=== PATIENT | female | born 1955 | race Two or more races ===

== ENCOUNTER 2020-03-02 16:38 | Inpatient (IN) | payer MEDICAID, OTHER, SELFPAY ==
[~2020-03-02] VITALS: Ht 154.9 cm; Wt 74.0 kg
[2020-03-02 18:51] LABS: Basophils # (auto) 0 10 ^3/uL (0-0.2); Basophils % (auto) 0.4 % (0.0-2.0); Eosinophils # (auto) 0 10 ^3/uL (0-0.8); Hematocrit 39.2 % (36.0-46.0); Lymphocytes # (auto) 0.5 10 ^3/uL (0.4-5.4); Lymphocytes % (auto) 17.6 % (10.0-50.0); Mean Corpuscular Hemoglobin 30.5 pg (28.0-32.0); Mean Corpuscular Hgb Conc. 35.6 g/dL (32.0-36.0); Mean Corpuscular Volume 85.7 fL (80.0-100.0); Monocytes # (auto) 0.4 10 ^3/uL (0-1.3); Monocytes % (auto) 12.5 % (0.0-12.0); Neutrophils % (auto) 69.5 % (37.0-80.0); Platelet Count (auto) 139 10^3/uL (140-450); Red Blood Cells 4.58 10^6/uL (4.0-5.20); Red Cell Distribution Width 13.2 % (11.8-14.3); White Blood Cell 2.9 10^3/uL (4.4-10.8)
[2020-03-02] MEDS ORDERED: ASCORBIC ACID 500 MG TAB PO ONE (19:00)
[2020-03-02] MEDS ORDERED: DexAMETHasone SOD PHOS 10MG/1ML VIAL INJ IV ONE (19:00)
[2020-03-02] MEDS ORDERED: ZINC SULFATE 220mg CAP or TAB PO ONE (19:00)
[2020-03-02] MEDS ORDERED: AZITHROMYCIN 500MG/ 250ML 250 ML IV ONE (19:00)
[2020-03-02] MEDS ORDERED: SODIUM CHLORIDE 0.9% 1,000 ML IVB ONE (19:00)
[2020-03-02 19:03] LABS: INR 1.02 (0.9-1.15); Partial Thromboplastin Time 33.3 sec (23.0-31.2)
[2020-03-02 19:13] LABS: Albumin 3.3 g/dL (3.4-5.0); Calcium 8.4 mg/dL (8.5-10.1); Potassium 3.9 mmol/L (3.5-5.1)
[2020-03-02 19:20] LABS: BUN/Creatinine Ratio 19.5; Bilirubin, Total 0.4 mg/dL (0.2-1.0); Total Protein 7.2 g/dL (6.4-8.2)
[2020-03-02] MEDS ORDERED: ONDANSETRON HCL 4 MG/2 ML VIAL IV PRN (22:00)
[2020-03-02] MEDS ORDERED: HYDROcodone-ACET 5/325MG TAB PO PRN (22:00)
[2020-03-02] MEDS: BUDESONIDE (INHALATION) 180 MCG IH IN SCH (22:00)
[2020-03-02] MEDS ORDERED: MORPHINE SULF INJ 2 MG/ML SYRINGE 1ML IV PRN (22:00)
[2020-03-02] MEDS ORDERED: NITROGLYCERIN 0.4 MG SL TAB SL PRN (22:00)
[2020-03-02] MEDS ORDERED: ACETAMINOPHEN 500 MG TAB PO PRN (22:00)
[2020-03-02] MEDS ORDERED: DOCUSATE SOD 100 MG CAP PO PRN (22:00)
[2020-03-02] MEDS: SODIUM CHLOR 0.9% PF (SALINE LOCK) 10ML VIAL/SYR IV SCH (22:44)
[2020-03-02] MEDS: DOXYCYCLINE 100MG/250ML 250 ML IV SCH (23:19)
[2020-03-03] MEDS: SODIUM CHLOR 0.9% PF (SALINE LOCK) 10ML VIAL/SYR IV SCH ×2 (03:57→13:55)
[2020-03-03 04:37] LABS: Basophils # (auto) 0 10 ^3/uL (0-0.2); Eosinophils # (auto) 0 10 ^3/uL (0-0.8); Hemoglobin 13.8 g/dL (12.2-16.2); Lymphocytes # (auto) 0.4 10 ^3/uL (0.4-5.4); Monocytes # (auto) 0.1 10 ^3/uL (0-1.3); Neutrophils # (auto) 1.4 10 ^3/uL (1.6-8.6)
[2020-03-03 04:42] LABS: Basophils % (auto) 0.3 % (0.0-2.0); Hematocrit 39.7 % (36.0-46.0); Lymphocytes % (auto) 20.4 % (10.0-50.0); Mean Corpuscular Hgb Conc. 34.6 g/dL (32.0-36.0); Mean Corpuscular Volume 86.6 fL (80.0-100.0); Neutrophils % (auto) 73.3 % (37.0-80.0); Nucleated Red Blood Cells % 0.2 %; Platelet Count (auto) 140 10^3/uL (140-450); Red Blood Cells 4.59 10^6/uL (4.0-5.20); Red Cell Distribution Width 13.4 % (11.8-14.3)
[2020-03-03 04:55] LABS: Potassium 4.3 mmol/L (3.5-5.1)
[2020-03-03 04:56] LABS: White Blood Cell 1.9 10^3/uL (4.4-10.8)
[2020-03-03 05:03] LABS: BUN/Creatinine Ratio 21.3; Bilirubin, Total 0.4 mg/dL (0.2-1.0); Calcium 8.1 mg/dL (8.5-10.1); Magnesium 2.4 mg/dL (1.6-2.6); Total Protein 6.8 g/dL (6.4-8.2)
[2020-03-03] MEDS: BUDESONIDE (INHALATION) 180 MCG IH IN SCH ×2 (10:00→22:00)
[2020-03-03] MEDS ORDERED: PANTOPRAZOLE 40 MG/10 ML VIAL INJ IV SCH (10:00)
[2020-03-03] MEDS ORDERED: ENOXAPARIN SOD 40 MG/0.4 ML SYRINGE SC SCH (10:00)
[2020-03-03] MEDS: ZINC SULFATE 220mg CAP or TAB PO SCH (11:29)
[2020-03-03] MEDS: ASCORBIC ACID 1,000 MG TAB PO SCH (11:29)
[2020-03-03] MEDS: DOXYCYCLINE 100MG/250ML 250 ML IV SCH (11:29)
[2020-03-03] MEDS: MULTIPLE VITAMIN TAB PO SCH (11:29)
[2020-03-03] MEDS: CHOLECALCIFEROL (VITD3) 2,000 UNIT CAP/TAB PO SCH (11:30)
[2020-03-03] MEDS: DexAMETHasone SOD PHOS 10MG/1ML VIAL INJ IV SCH (11:30)
[2020-03-03] MEDS ORDERED: REMDESIVIR PER PHARMACY 0 ML IV SCH (12:00)
[2020-03-03] MEDS: ENOXAPARIN SOD 80 MG/0.8ML SYRINGE SC SCH (13:27)
[2020-03-03] MEDS ORDERED: REMDESIVIR 200 MG in NS 210ml LOADING DOSE ADULT IV ONE ×2 (15:00→18:00)
[2020-03-04] MEDS: DOXYCYCLINE 100MG/250ML 250 ML IV SCH ×3 (00:29→23:26)
[2020-03-04] MEDS: FAMOTIDINE 20 MG TAB PO SCH ×3 (00:29→23:26)
[2020-03-04] MEDS: ENOXAPARIN SOD 80 MG/0.8ML SYRINGE SC SCH ×2 (00:30→10:00)
[2020-03-04] MEDS: SODIUM CHLOR 0.9% PF (SALINE LOCK) 10ML VIAL/SYR IV SCH ×4 (00:30→23:26)
[2020-03-04 01:50] VITALS: BP 119/39
[2020-03-04 07:21] LABS: Albumin 2.8 g/dL (3.4-5.0); Calcium 8.4 mg/dL (8.5-10.1); Potassium 4.3 mmol/L (3.5-5.1)
[2020-03-04] MEDS: BUDESONIDE (INHALATION) 180 MCG IH IN SCH ×2 (07:26→21:37)
[2020-03-04 07:27] LABS: BUN/Creatinine Ratio 31.3; Bilirubin, Total 0.3 mg/dL (0.2-1.0); Total Protein 6.7 g/dL (6.4-8.2)
[2020-03-04 08:00] VITALS: BP 132/66
[2020-03-04] MEDS ORDERED: PROMETHAZINE HCL 25 MG/ML 1ML IV ONE (09:15)
[2020-03-04] MEDS ORDERED: MIDAZOLAM HCL 1MG/1ML-2 ML VIAL ONE (09:26)
[2020-03-04] MEDS ORDERED: SODIUM CHL 0.9% 50 ML ONE (09:26)
[2020-03-04] MEDS ORDERED: fentaNYL CITRATE 100 MCG/2 ML VL ONE (09:26)
[2020-03-04] MEDS ORDERED: ANGIOMAX 250 MG VIAL IV ONE (09:26)
[2020-03-04] MEDS ORDERED: VERAPAMIL 2.5MG/ML INJ 2ML VIAL IV ONE (09:26)
[2020-03-04] MEDS ORDERED: HEPARIN SODIUM (PORCINE) 5000 UNITS/ML 1ML VIAL ONE ×2 (09:27→09:40)
[2020-03-04] MEDS ORDERED: LIDOCAINE 2%HCL (LOCAL ANESTH.) INJ 20ML MDV ONE (09:28)
[2020-03-04] MEDS ORDERED: IODIXANOL 320MG/ML 100ML BTL IV ONE (09:29)
[2020-03-04] MEDS ORDERED: HEPARIN 1,000 UNITS/ml 1ML VIAL IV ONE (09:30)
[2020-03-04] MEDS ORDERED: ASPirin 81 mg TAB PO ONE (09:30)
[2020-03-04 09:36] LABS: Cholesterol 184 mg/dL (< 200); Triglycerides 133 mg/dL (< 150)
[2020-03-04 09:38] LABS: HDL Cholesterol 53 mg/dL (40-59); LDL Cholesterol 106 mg/dL (< 100)
[2020-03-04] MEDS ORDERED: ASPirin 81 mg TAB ONE (09:40)
[2020-03-04] MEDS: NITROGLYCERIN 0.2MG/HR TOPICAL PATCH TD SCH (10:00)
[2020-03-04] MEDS: ZINC SULFATE 220mg CAP or TAB PO SCH (10:00)
[2020-03-04] MEDS: MULTIPLE VITAMIN TAB PO SCH (10:00)
[2020-03-04] MEDS: CHOLECALCIFEROL (VITD3) 2,000 UNIT CAP/TAB PO SCH (10:00)
[2020-03-04] MEDS: DexAMETHasone SOD PHOS 10MG/1ML VIAL INJ IV SCH (10:00)
[2020-03-04] MEDS: ASCORBIC ACID 1,000 MG TAB PO SCH (10:00)
[2020-03-04] MEDS: ASPirin 81 mg TAB PO SCH (10:00)
[2020-03-04] MEDS: REMDESIVIR 100 MG in SODIUM CHL 0.9% 250 ML IV SCH (15:00)
[2020-03-04 16:00] VITALS: BP 104/45
[2020-03-04] MEDS: ENOXAPARIN SOD 40 MG/0.4 ML SYRINGE SC SCH (23:27)
[2020-03-05] VITALS: BP 118/50
[2020-03-05] MEDS: SODIUM CHLOR 0.9% PF (SALINE LOCK) 10ML VIAL/SYR IV SCH ×3 (05:47→22:34)
[2020-03-05] MEDS: BUDESONIDE (INHALATION) 180 MCG IH IN SCH ×2 (07:30→19:56)
[2020-03-05 08:00] VITALS: BP 121/50
[2020-03-05] MEDS: ALBUTEROL SULF HFA 90MCG INH 200DOSE IN PRN ×2 (08:38→19:56)
[2020-03-05 08:59] LABS: Potassium 3.7 mmol/L (3.5-5.1)
[2020-03-05 10:10] LABS: Albumin 2.6 g/dL (3.4-5.0); BUN/Creatinine Ratio 26.8; Bilirubin, Total 0.4 mg/dL (0.2-1.0); CRP High Sensitivity 4.2 mg/dL (< 0.3); Calcium 7.8 mg/dL (8.5-10.1); Total Protein 6.4 g/dL (6.4-8.2)
[2020-03-05] MEDS: FUROSEMIDE 20 MG/2 ML VIAL IV SCH (11:19)
[2020-03-05] MEDS: DexAMETHasone SOD PHOS 10MG/1ML VIAL INJ IV SCH (11:19)
[2020-03-05] MEDS: DOXYCYCLINE 100MG/250ML 250 ML IV SCH ×2 (11:20→22:34)
[2020-03-05] MEDS: ASPirin 81 mg TAB PO SCH (11:22)
[2020-03-05] MEDS: ENOXAPARIN SOD 40 MG/0.4 ML SYRINGE SC SCH ×2 (11:23→22:33)
[2020-03-05] MEDS: ZINC SULFATE 220mg CAP or TAB PO SCH (11:23)
[2020-03-05] MEDS: CHOLECALCIFEROL (VITD3) 2,000 UNIT CAP/TAB PO SCH (11:24)
[2020-03-05] MEDS: NITROGLYCERIN 0.2MG/HR TOPICAL PATCH TD SCH (11:24)
[2020-03-05] MEDS: ASCORBIC ACID 1,000 MG TAB PO SCH (11:25)
[2020-03-05] MEDS: FAMOTIDINE 20 MG TAB PO SCH ×2 (11:25→22:33)
[2020-03-05] MEDS: MULTIPLE VITAMIN TAB PO SCH (11:25)
[2020-03-05] MEDS ORDERED: ERGOCALCIFEROL 50,000 UNIT(1.25MG) CAP PO SCH ×2 (14:00→15:15)
[2020-03-05 16:00] VITALS: BP 118/59
[2020-03-05] MEDS: REMDESIVIR 100 MG in SODIUM CHL 0.9% 250 ML IV SCH (16:00)
[2020-03-05] MEDS: CLOPIDOGREL BISULFATE 75 MG TAB PO SCH (16:25)
[2020-03-05] MEDS ORDERED: ERGOCALCIFEROL 50,000 UNIT(1.25MG) CAP PO ONE (20:15)
[2020-03-05] MEDS: ATORVASTATIN 20 MG TAB PO SCH (22:33)
[2020-03-06] VITALS: BP 106/45
[2020-03-06] MEDS: SODIUM CHLOR 0.9% PF (SALINE LOCK) 10ML VIAL/SYR IV SCH ×3 (04:57→21:36)
[2020-03-06] MEDS: ALBUTEROL SULF HFA 90MCG INH 200DOSE IN PRN ×2 (07:26→21:30)
[2020-03-06] MEDS: BUDESONIDE (INHALATION) 180 MCG IH IN SCH ×2 (07:26→21:30)
[2020-03-06 07:29] LABS: Basophils # (auto) 0 10 ^3/uL (0-0.2); Basophils % (auto) 0.1 % (0.0-2.0); Eosinophils # (auto) 0 10 ^3/uL (0-0.8); Hematocrit 39.8 % (36.0-46.0); Hemoglobin 13.1 g/dL (12.2-16.2); Lymphocytes # (auto) 0.6 10 ^3/uL (0.4-5.4); Lymphocytes % (auto) 13.1 % (10.0-50.0); Mean Corpuscular Hemoglobin 28.6 pg (28.0-32.0); Mean Corpuscular Hgb Conc. 33.1 g/dL (32.0-36.0); Mean Corpuscular Volume 86.4 fL (80.0-100.0); Monocytes # (auto) 0.5 10 ^3/uL (0-1.3); Monocytes % (auto) 10.9 % (0.0-12.0); Neutrophils # (auto) 3.4 10 ^3/uL (1.6-8.6); Neutrophils % (auto) 75.9 % (37.0-80.0); Nucleated Red Blood Cells % 0.1 %; Platelet Count (auto) 199 10^3/uL (140-450); Red Cell Distribution Width 13.3 % (11.8-14.3); White Blood Cell 4.4 10^3/uL (4.4-10.8)
[2020-03-06 08:00] VITALS: BP 124/43
[2020-03-06 08:07] LABS: Potassium 3.9 mmol/L (3.5-5.1)
[2020-03-06 08:19] LABS: Albumin 2.5 g/dL (3.4-5.0); BUN/Creatinine Ratio 37.7; Bilirubin, Total 0.4 mg/dL (0.2-1.0); Calcium 8.2 mg/dL (8.5-10.1); Total Protein 6.4 g/dL (6.4-8.2)
[2020-03-06] MEDS: MULTIPLE VITAMIN TAB PO SCH (09:43)
[2020-03-06] MEDS: ASCORBIC ACID 1,000 MG TAB PO SCH (09:43)
[2020-03-06] MEDS: ZINC SULFATE 220mg CAP or TAB PO SCH (09:43)
[2020-03-06] MEDS: CLOPIDOGREL BISULFATE 75 MG TAB PO SCH (09:44)
[2020-03-06] MEDS: FAMOTIDINE 20 MG TAB PO SCH ×2 (09:44→21:37)
[2020-03-06] MEDS: ASPirin 81 mg TAB PO SCH (09:45)
[2020-03-06] MEDS: DexAMETHasone SOD PHOS 10MG/1ML VIAL INJ IV SCH (09:45)
[2020-03-06] MEDS: DOXYCYCLINE 100MG/250ML 250 ML IV SCH ×2 (09:45→21:36)
[2020-03-06] MEDS: ENOXAPARIN SOD 40 MG/0.4 ML SYRINGE SC SCH ×2 (09:46→21:37)
[2020-03-06] MEDS: FUROSEMIDE 20 MG/2 ML VIAL IV SCH (09:46)
[2020-03-06] MEDS: NITROGLYCERIN 0.2MG/HR TOPICAL PATCH TD SCH (10:00)
[2020-03-06] MEDS: CHOLECALCIFEROL (VITD3) 2,000 UNIT CAP/TAB PO SCH (10:11)
[2020-03-06 16:00] VITALS: BP 115/43
[2020-03-06] MEDS: REMDESIVIR 100 MG in SODIUM CHL 0.9% 250 ML IV SCH (16:15)
[2020-03-06] MEDS: ATORVASTATIN 20 MG TAB PO SCH (21:36)
[2020-03-07] VITALS: BP 118/55
[2020-03-07] MEDS: SODIUM CHLOR 0.9% PF (SALINE LOCK) 10ML VIAL/SYR IV SCH ×3 (06:34→21:55)
[2020-03-07 08:00] VITALS: BP 111/46
[2020-03-07 08:43] LABS: Albumin 2.7 g/dL (3.4-5.0); Potassium 3.5 mmol/L (3.5-5.1)
[2020-03-07 08:47] LABS: BUN/Creatinine Ratio 33.3; Bilirubin, Total 0.4 mg/dL (0.2-1.0); Total Protein 6.5 g/dL (6.4-8.2)
[2020-03-07] MEDS: NITROGLYCERIN 0.2MG/HR TOPICAL PATCH TD SCH (10:00)
[2020-03-07] MEDS: BUDESONIDE (INHALATION) 180 MCG IH IN SCH ×2 (10:39→19:13)
[2020-03-07] MEDS: FUROSEMIDE 20 MG/2 ML VIAL IV SCH (10:39)
[2020-03-07] MEDS: DexAMETHasone SOD PHOS 10MG/1ML VIAL INJ IV SCH (10:39)
[2020-03-07] MEDS: MULTIPLE VITAMIN TAB PO SCH (10:40)
[2020-03-07] MEDS: FAMOTIDINE 20 MG TAB PO SCH ×2 (10:40→21:55)
[2020-03-07] MEDS: ZINC SULFATE 220mg CAP or TAB PO SCH (10:40)
[2020-03-07] MEDS: ASPirin 81 mg TAB PO SCH (10:40)
[2020-03-07] MEDS: CLOPIDOGREL BISULFATE 75 MG TAB PO SCH (10:40)
[2020-03-07] MEDS: ASCORBIC ACID 1,000 MG TAB PO SCH (10:40)
[2020-03-07] MEDS: ENOXAPARIN SOD 40 MG/0.4 ML SYRINGE SC SCH ×2 (10:41→21:55)
[2020-03-07] MEDS: CHOLECALCIFEROL (VITD3) 2,000 UNIT CAP/TAB PO SCH (10:41)
[2020-03-07] MEDS: DOXYCYCLINE 100MG/250ML 250 ML IV SCH (10:43)
[2020-03-07 16:00] VITALS: BP 121/60
[2020-03-07] MEDS: REMDESIVIR 100 MG in SODIUM CHL 0.9% 250 ML IV SCH (16:52)
[2020-03-07] MEDS: ALBUTEROL SULF HFA 90MCG INH 200DOSE IN PRN (19:13)
[2020-03-07] MEDS: ATORVASTATIN 20 MG TAB PO SCH (21:55)
[2020-03-08] VITALS: BP 95/56
[2020-03-08 06:40] LABS: Albumin 2.7 g/dL (3.4-5.0); Calcium 8.2 mg/dL (8.5-10.1); Potassium 3.8 mmol/L (3.5-5.1)
[2020-03-08 06:44] LABS: BUN/Creatinine Ratio 36.2; Bilirubin, Total 0.5 mg/dL (0.2-1.0); Total Protein 6.6 g/dL (6.4-8.2)
[2020-03-08 08:00] VITALS: BP 132/52
[2020-03-08] MEDS: ENOXAPARIN SOD 40 MG/0.4 ML SYRINGE SC SCH (10:00)
[2020-03-08] MEDS: ASPirin 81 mg TAB PO SCH (10:00)
[2020-03-08] MEDS: ZINC SULFATE 220mg CAP or TAB PO SCH (10:00)
[2020-03-08] MEDS: CHOLECALCIFEROL (VITD3) 2,000 UNIT CAP/TAB PO SCH (10:00)
[2020-03-08] MEDS: BUDESONIDE (INHALATION) 180 MCG IH IN SCH ×2 (10:00→15:50)
[2020-03-08] MEDS: MULTIPLE VITAMIN TAB PO SCH (10:00)
[2020-03-08] MEDS: DexAMETHasone SOD PHOS 10MG/1ML VIAL INJ IV SCH (10:00)
[2020-03-08] MEDS: CLOPIDOGREL BISULFATE 75 MG TAB PO SCH (10:00)
[2020-03-08] MEDS: ASCORBIC ACID 1,000 MG TAB PO SCH (10:00)
[2020-03-08] MEDS: FAMOTIDINE 20 MG TAB PO SCH (10:00)
[2020-03-08] MEDS: NITROGLYCERIN 0.2MG/HR TOPICAL PATCH TD SCH (10:00)
[2020-03-08] MEDS: SODIUM CHLOR 0.9% PF (SALINE LOCK) 10ML VIAL/SYR IV SCH ×2 (11:07→14:00)
[2020-03-08] MEDS: FUROSEMIDE 20 MG/2 ML VIAL IV SCH (11:12)
[2020-03-08] MEDS: REMDESIVIR 100 MG in SODIUM CHL 0.9% 250 ML IV SCH (14:07)
[2020-03-08] MEDS: ALBUTEROL SULF HFA 90MCG INH 200DOSE IN PRN ×2 (15:49→15:50)
[2020-03-08 16:00] VITALS: BP 114/52
[2020-03-08 17:14] VITALS: BP 114/52
== END 2020-03-08 17:40 | disposition home or self-care (01) | DRG 192 ==
LOC: ER 16:41 → TELE 22:03 → TELE-WESTW 03-03 23:50
PROVIDERS: ADMIT Nurse Practitioner Family; ATTEND Internal Medicine
PROC: XW033E5 Introduction of Remdesivir Anti-infective into Peripheral Vein, Percutaneous Approach, New Technology Group 5 (ICD-10-PCS; 2020-03-03)
PROC: B2111ZZ Fluoroscopy of Multiple Coronary Arteries using Low Osmolar Contrast (ICD-10-PCS; principal; 2020-03-04)
DX: I11.0 Hypertensive heart disease with heart failure (principal); U07.1 COVID-19; I21.3 ST elevation (STEMI) myocardial infarction of unspecified site; I50.23 Acute on chronic systolic (congestive) heart failure; J96.01 Acute respiratory failure with hypoxia; J12.82 Pneumonia due to coronavirus disease 2019; D72.819 Decreased white blood cell count, unspecified; E11.9 Type 2 diabetes mellitus without complications; E66.9 Obesity, unspecified; I25.10 Atherosclerotic heart disease of native coronary artery without angina pectoris; E78.5 Hyperlipidemia, unspecified; I05.0 Rheumatic mitral stenosis; Z68.30 Body mass index [BMI] 30.0-30.9, adult; Z82.49 Family history of ischemic heart disease and other diseases of the circulatory system; Z88.0 Allergy status to penicillin
CPT/HCPCS: 36415; 71045; 80053; 80061; 82306; 82550; 82728; 83036; 83605; 83615; 83735; 83880; 84443; 84484; 85025; 85379; 85610; 85730; 86141; 87040; 87426; 93005; 93306; 93458; 94640; 99152; 99153; C9113; G0378; J1100; J2250; J3490; Q9967

== ENCOUNTER 2024-05-09 19:46 | Inpatient (IN) | payer MEDICAID ==
[~2024-05-09] VITALS: Ht 165.1 cm; Wt 82.5 kg
--- NOTE | 2024-05-09 20:01 | ED.PDOC ---
HPI Comments 69 year old female brought in by EMS presents to the ED with a chief complaint of chest pain onset today (05/09/24) around 17:00. Per EMS, patient began experiencing LT sided chest pain about 2 hours ago, described as a sharp/ tightness sensation. Upon their arrival patient was a-fib, RVR, self converted once she was in the rney. Patient states upon ED arrival, she is currently not experiencing chest pain. Upon ED arrival, EKG was done and sent to Dr. Nogueira for evaluation, states it is not a stemi at this time, give patient Nitro, repeat EKG in 15 minutes. PMHx HTN, HLD. Denies shortness of breath, blurry vision, headache, dizziness, nausea, vomiting, diarrhea. No other symptoms or modifying factors present at this time. Chief Complaint: Chest Pain Time Seen by MD: 19:54 Primary Care Provider: none Reviewed Notes: Medications, Allergies Allergies: Coded Allergies: Penicillins (Verified Allergy, Unknown, 03/02/20) Home Meds No Active Prescriptions or Reported Meds Information Source: Patient, Emergency Med Personnel Mode of Arrival: EMS Severity: Moderate Timing: Hours Duration: Since onset Prehospital treatment: 12 Lead EKG Location: Chest (L) Radiation: No Radiation Quality: Sharp, Tightness Onset: At Rest Cardiac Risk Factors: Hyperlipidemia, HTN PE Risk Factors: None History of: None Modifying Factors: Nothing Past Medical History PAST MEDICAL HISTORY: High Lipids, HTN Surgical History: Pacemaker LIFE SCIENCES MANAGER History: No Pertinent LIFE SCIENCES MANAGER History Family History Family History: Family hx of HTN Social History Smoker: Non-Smoker Alcohol: Rarely Lives In: Home Constitutional: denies: chills, diaphoresis, fatigue, fever, malaise, sweats, weakness, others EENTM: denies: blurred vision, double vision, ear bleeding, ear discharge, ear drainage, ear pain, ear ringing, eye pain, eye redness, hearing loss, mouth pain, mouth swelling, nasal discharge, nose bleeding, nose congestion, nose pain, photophobia, tearing, throat pain, throat swelling, voice changes, others Respiratory: denies: cough, hemoptysis, orthopnea, SOB at rest, shortness of breath, SOB with excertion, stridor, wheezing, others Cardiovascular: reports: chest pain; denies: dizzy spells, diaphoresis, Dyspnea on exertion, edema, irregular heart beat, left arm pain, lightheadedness, palpitations, PND, syncope, others Gastrointestinal: denies: abdomen distended, abdominal pain, blood streaked bowels, constipated, diarrhea, dysphagia, difficulty swallowing, hematemesis, melena, nausea, poor appetite, poor fluid intake, rectal bleeding, rectal pain, vomiting, others Genitourinary: denies: abnormal vagina bleeding, burning, dyspareunia, dysuria, flank pain, frequency, hematuria, incontinence, pain, , vagina discharge, urgency, others Neurological: denies: dizziness, fainting, headache, left sided numbness, left sided weakness, numbness, paresthesia, pre-existing deficit, right sided numbness, right sided weakness, seizure, speech problems, tingling, tremors, weakness, others Musculoskeletal: denies: back pain, gout, joint pain, joint swelling, muscle pain, muscle stiffness, neck pain, others Integumetry: denies: bruises, change in color, change in hair/nails, dryness, laceration, lesions, lumps, rash, wounds, others Allergic/Immunocompromised: denies: Difficulty Healing, Frequent Infections, Hives, Itching, others Hematologic/Lymphatic: denies: anemia, blood clots, easy bleeding, easy bruising, swollen glands, others Endocrine: denies: excessive hunger, excessive sweating, excessive thirst, excessive urination, flushing, intolerance to cold, intolerance to heat, unexplained weight gain, unexplained weight loss, others Psychiatric: denies: anxiety, bipolar disorder, depression, hopeless, panic disorder, schizophrenia, sleepless, suicidal, others All Other Systems: Reviewed and Negative Physical Exam General Appearance: No Apparent Distress, Normal HEENT: Normal ENT Inspection, Pharynx Normal, TMs Normal Neck: Full Range of Motion, Non-Tender, Normal, Normal Inspection Respiratory: Chest Non-Tender, Lungs Clear, No Accessory Muscle Use, No Respiratory Distress, Normal Breath Sounds Cardiovascular: No Edema, No JVD, No Murmur, No Gallop, Normal Peripheral Pulses, Regular Rate/Rhythm Breast Exam: Deferred Gastrointestinal: No Organomegaly, Non Tender, No Pulsatile Mass, Normal Bowel Sounds, Soft Genitalia: Deferred Pelvic: Deferred Rectal: Deferred Extremities: No calf tenderness, Normal capillary refill, Normal inspection, Normal range of motion, Non-tender, No pedal edema Musculoskeletal : Apperance: Normal Neurologic: Alert, 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 Was a procedure done?: No CP Differential Dx Differential Diagnosis: A-fib, RI, PAC's, PVC's, WPW Differential Diagnosis: HTN Essential, HTN Accelerated Differential Diagnosis: Cholelithiasis, Gastritis, Myocardial Infarction, Pericarditis X-Ray, Labs, Meds, VS Vital Signs Date Time Temp Pulse Resp B/P (MAP) Pulse Ox O2 Delivery O2 Flow Rate FiO2 05/09/24 20:15 83 05/09/24 20:09 137/66 05/09/24 20:02 79 05/09/24 19:51 98.2 92 18 137/66 (89) 95 05/09/24 19:47 82 Lab Test 05/09/24 20:49 05/09/24 20:08 Range/Units Troponin I High Sensitivity Pending 1105 *H </=34 ng/L White Blood Count 7.3 4.4-10.8 10^3/uL Red Blood Count 5.37 H 4.0-5.20 10^6/uL Hemoglobin 15.5 12.2-16.2 g/dL Hematocrit 47.4 H 36.0-46.0 % Mean Corpuscular Volume 88.2 80.0-100.0 fL Mean Corpuscular Hemoglobin 28.8 28.0-32.0 pg Mean Corpuscular Hemoglobin Concent 32.7 32.0-36.0 g/dL Red Cell Distribution Width 13.5 11.8-14.3 % Platelet Count 166 140-450 10^3/uL Mean Platelet Volume 10.3 6.9-10.8 fL Neutrophils (%) (Auto) 70.2 37.0-80.0 % Lymphocytes (%) (Auto) 22.3 10.0-50.0 % Monocytes (%) (Auto) 5.6 0.0-12.0 % Eosinophils (%) (Auto) 1.3 0.0-7.0 % Basophils (%) (Auto) 0.6 0.0-2.0 % Neutrophils # (Auto) 5.1 1.6-8.6 10 ^3/uL Lymphocytes # (Auto) 1.6 0.4-5.4 10 ^3/uL Monocytes # (Auto) 0.4 0-1.3 10 ^3/uL Eosinophils # (Auto) 0.1 0-0.8 10 ^3/uL Basophils # (Auto) 0 0-0.2 10 ^3/uL Nucleated Red Blood Cells 0.1 % Prothrombin Time 11.0 9.3-11.8 sec Prothrombin Time INR 1.04 0.9-1.15 Activated Partial Thromboplast Time 29.4 24.5-34.5 SEC Sodium Level 141 136-145 mmol/L Potassium Level 4.1 3.5-5.1 mmol/L Chloride Level 106 98-107 mmol/L Carbon Dioxide Level 22 20-31 mmol/L Anion Gap 13 5-15 Blood Urea Nitrogen 17 9-23 mg/dL Creatinine 0.91 0.550-1.02 mg/dL Glomerular Filtration Rate Calc 69 >90 mL/min BUN/Creatinine Ratio 18.7 10.0-20.0 Serum Glucose 127 H 74-106 mg/dL Lactic Acid Level 1.6 0.4-2.0 mmol/L Calcium Level 9.6 8.7-10.4 mg/dL Current Medications Medications (Trade) Dose Ordered Sig/Yesica Route Start Time Stop Time Status Last Admin Nitroglycerin (Ntrostat Sublingual) 0.4 mg ONCE ONCE SL 05/09/24 20:00 05/09/24 20:01 DC 05/09/24 20:09 . [place] [id number] Ph: [phone] DIAGNOSTIC IMAGING Diagnostic Imaging Report : [id number] Signed PATIENT: ROEL CRAMER ACCT: [id number] UNIT: [id number] : 1955 LOC: ER ROOM / BED: / AGE / SEX: 69 / F ADM STATUS: REG ER SERVICE 54 ORDERING PHYSICIAN: ODELL ZHU MD PROCEDURE(s): CXRP - CHEST PORTABLE REASON: chest pain ORDER NUMBER(s): [id number], ACCESSION NUMBER(s): [id number] CHEST RADIOGRAPH Indication: chest pain Technique: Single frontal view of the chest was obtained COMPARISON: CHEST PORTABLE on DOS: 03/06/20, CHEST PORTABLE on DOS: 03/02/20 FINDINGS: Lines and Tubes: Pacemaker/ AICD in the left upper chest with 2 cardiac leads. Lungs: Moderate interstitial pulmonary edema. Pleura: No effusion. No pneumothorax. Cardiomediastinal contours: Cardiomegaly Bones: Unremarkable IMPRESSION: 1. Moderate interstitial pulmonary edema in the setting of cardiomegaly ATED BY: AMANDA MURO MD DICTATED DATE/TIME: 05/09/242027 SIGNED BY: AMANDA MURO MD SIGNED DATE/TIME: 05/09/242027 CC: Time of 1ST Reevaluation: 20:24 Reevaluation 1ST: Unchanged Patient Education/Counseling: Diagnosis, Treatment, Prognosis Family Education/Counseling: No Family Present Departure 1 Departure Time of Disposition: 21:18 (Patient presented with chest pain that was concerning for possible STEMI, ACS, PE, Pneumonia, Muscle Strain, COPD, Dissection. Data: 1. I ordered and reviewed the result of at least 3 labs including a CBC, BMP, and Troponin. 2. I independently interpreted the following tests: EKG which shows elevations in the lateral leads and Chest X-ray which shows benign chest.Risk:This patient has a high risk of morbidity due to further diagnostic testing or treatment and may suffer from an acute cardiac or respiratory disorder. Workup reveals concern for an acute coronary syndrome and patient should be admitted for further workup and possible expert consultation. ) Impression: Primary Impression: Acute RI Qualified Codes: I21.3 - ST elevation (STEMI) myocardial infarction of unspecified site Additional Impression: Acute chest pain Disposition: 09 ADMITTED INPATIENT Admit to: medical laboratory assistant Condition: Critical e-Prescriptions No Active Prescriptions or Reported Meds Critical Care Note Critical Care Time?: Yes Critical care comment: Acute RI Authorized and Performed by: Odell Zhu MD Total critical care time: Approximately 47 minutes Due to a high probability of clinically significant, life threatening deterioration, the patient required my highest level of preparedness to intervene emergently and I personally spent this critical care time directly and personally managing the patient. This critical care time included obtaining a history; examining the patient; pulse oximetry; ordering and review of studies; arranging urgent treatment with development of a management plan; evaluation of patient's response to treatment; frequent reassessment; and, discussions with other providers. This critical care time was performed to assess and manage the high probability of imminent, life-threatening deterioration that could result in multi-organ failure. It was exclusive of separately billable procedures and treating other patients and teaching time. Please see my other sections and the rest of the note for further information on patient assessment and treatment. Stability Stability form required: No Heart Score Heart Score: Heart Score Response (Comments) Value History Moderate Suspicious [address]-Deviation 2 Age >65 2 Risk Factors >3 or Hx ASHD 2 Troponin >3 x's Normal limit 2 Total 9 I personally scribed for ODELL ZHU MD ([email or web address]) on 05/09/24 at 20:01. Electronically submitted by Radha Lancaster ([email or web address]). I personally scribed for ODELL ZHU MD ([email or web address]) on 05/09/24 at 20:04. Electronically submitted by Radha Lancaster ([email or web address]). I personally scribed for ODELL ZHU MD ([email or web address]) on 05/09/24 at 20:37. Electronically submitted by Radha Lancaster ([email or web address]). ODELL ZHU MD May 09, 2024 20:01
[2024-05-09] MEDS: NITROGLYCERIN 0.4 MG SL TAB SL ONE (20:09)
[2024-05-09 20:23] LABS: Basophils # (auto) 0 10 ^3/uL (0-0.2); Basophils % (auto) 0.6 % (0.0-2.0); Eosinophils # (auto) 0.1 10 ^3/uL (0-0.8); Eosinophils % (auto) 1.3 % (0.0-7.0); Hematocrit 47.4 % (36.0-46.0); Hemoglobin 15.5 g/dL (12.2-16.2); Lymphocytes # (auto) 1.6 10 ^3/uL (0.4-5.4); Lymphocytes % (auto) 22.3 % (10.0-50.0); Mean Corpuscular Hemoglobin 28.8 pg (28.0-32.0); Mean Corpuscular Hgb Conc. 32.7 g/dL (32.0-36.0); Mean Corpuscular Volume 88.2 fL (80.0-100.0); Monocytes # (auto) 0.4 10 ^3/uL (0-1.3); Monocytes % (auto) 5.6 % (0.0-12.0); Neutrophils # (auto) 5.1 10 ^3/uL (1.6-8.6); Neutrophils % (auto) 70.2 % (37.0-80.0); Nucleated Red Blood Cells % 0.1 %; Platelet Count (auto) 166 10^3/uL (140-450); Red Blood Cells 5.37 10^6/uL (4.0-5.20); Red Cell Distribution Width 13.5 % (11.8-14.3); White Blood Cell 7.3 10^3/uL (4.4-10.8)
--- NOTE | 2024-05-09 20:31 | DVH ---
CHEST RADIOGRAPH Indication: chest pain Technique: Single frontal view of the chest was obtained COMPARISON: CHEST PORTABLE on DOS: 03/06/20, CHEST PORTABLE on DOS: 03/02/20 FINDINGS: Lines and Tubes: Pacemaker/ AICD in the left upper chest with 2 cardiac leads. Lungs: Moderate interstitial pulmonary edema. Pleura: No effusion. No pneumothorax. Cardiomediastinal contours: Cardiomegaly Bones: Unremarkable IMPRESSION: 1. Moderate interstitial pulmonary edema in the setting of cardiomegaly
[2024-05-09 20:37] LABS: INR 1.04 (0.9-1.15); Partial Thromboplastin Time 29.4 SEC (24.5-34.5)
[2024-05-09 20:39] LABS: Chloride 106 mmol/L (98-107); Potassium 4.1 mmol/L (3.5-5.1); Sodium 141 mmol/L (136-145)
[2024-05-09 20:40] LABS: Anion Gap 13 (5-15); Calcium 9.6 mg/dL (8.7-10.4); Carbon Dioxide 22 mmol/L (20-31)
[2024-05-09 20:45] LABS: BUN/Creatinine Ratio 18.7 (10.0-20.0); Blood Urea Nitrogen 17 mg/dL (9-23)
[2024-05-09 20:46] LABS: Glucose 127 mg/dL (74-106)
--- NOTE | 2024-05-09 21:17 | DVHINCON2 ---
Date Seen: May 09, [address] Kingsley Reason for Consultation Chest pain History of Present Illness 69-year-old lady with a previous history of COVID and respiratory failure comes with a history of substernal chest pain. She was found to have an abnormal EKG for which cardiac evaluation was requested. She does have a previous history of coronary artery disease status post previous myocardial infarction. She states she was treated at [facility]. Most recently she developed substernal pressure however upon arrival to the emergency room and after several minutes her symptoms subsided. She felt a pressure type sensation. I was asked to evaluate patient with ST elevations and Q-waves in the anterior lateral leads. This EKG is similar to the one she had in 2019 and when she was here in the past. Past Medical History Her past medical history significant for coronary artery disease status post myocardial infarction treated at [facility] several years ago. History of hypertension hyperlipidemia. Increased body mass index. Past surgical history is significant for a pacemaker. Past Surgical History Status post pacemaker. Family History Noted history of coronary artery disease and hypertension Social History Nondrinker nonsmoker. Allergies: Coded Allergies: Penicillins (Verified Allergy, Unknown, 03/02/20) Home Meds No Active Prescriptions or Reported Meds Review of Systems Constitutional: denies: chills, diaphoresis, fatigue, fever, malaise, sweats, weakness, others EENTM: denies: blurred vision, double vision, ear bleeding, ear discharge, ear drainage, ear pain, ear ringing, eye pain, eye redness, hearing loss, mouth pain, mouth swelling, nasal discharge, nose bleeding, nose congestion, nose pain, photophobia, tearing, throat pain, throat swelling, voice changes, others Respiratory: denies: cough, hemoptysis, orthopnea, SOB at rest, shortness of breath, SOB with excertion, stridor, wheezing, others Cardiovascular: reports: chest pain; denies: dizzy spells, diaphoresis, Dyspnea on exertion, edema, irregular heart beat, left arm pain, lightheadedness, palpitations, PND, syncope, others Gastrointestinal: denies: abdomen distended, abdominal pain, blood streaked bowels, constipated, diarrhea, dysphagia, difficulty swallowing, hematemesis, melena, nausea, poor appetite, poor fluid intake, rectal bleeding, rectal pain, vomiting, others Genitourinary: denies: abnormal vagina bleeding, burning, dyspareunia, dysuria, flank pain, frequency, hematuria, incontinence, pain, , vagina discharge, urgency, others Neurological: denies: dizziness, fainting, headache, left sided numbness, left sided weakness, numbness, paresthesia, pre-existing deficit, right sided numbness, right sided weakness, seizure, speech problems, tingling, tremors, weakness, others Musculoskeletal: denies: back pain, gout, joint pain, joint swelling, muscle pain, muscle stiffness, neck pain, others Integumetry: denies: bruises, change in color, change in hair/nails, dryness, laceration, lesions, lumps, rash, wounds, others Allergic/Immunocompromised: denies: Difficulty Healing, Frequent Infections, Hives, Itching, others Hematologic/Lymphatic: denies: anemia, blood clots, easy bleeding, easy bruising, swollen glands, others Endocrine: denies: excessive hunger, excessive sweating, excessive thirst, excessive urination, flushing, intolerance to cold, intolerance to heat, unexplained weight gain, unexplained weight loss, others Psychiatric: denies: anxiety, bipolar disorder, depression, hopeless, panic disorder, schizophrenia, sleepless, suicidal, others All Other Systems: Reviewed and Negative Vital Signs Vital Signs Date Time Temp Pulse Resp B/P (MAP) Pulse Ox O2 Delivery O2 Flow Rate FiO2 05/09/24 20:15 83 05/09/24 20:09 137/66 05/09/24 19:51 98.2 18 95 Physical Exam General Appearance: No Apparent Distress, Increased BMI. HEENT: Normal ENT Inspection, Pharynx Normal, TMs Normal Neck: Full Range of Motion, Non-Tender, Normal, Normal Inspection Respiratory: Chest Non-Tender, Lungs Clear, No Accessory Muscle Use, No Respiratory Distress, Normal Breath Sounds Cardiovascular: No Edema, No JVD, No Murmur, Soft S4. 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 Tested, No Motor Deficits, Normal Affect, Normal Mood, No Sensory Deficits Cerebellar Function: Normal Reflexes: Normal Skin: Dry, Normal Color, Warm Lymphatic: No Adenopathy Labs/Diagnostic Data Labs Test 05/09/24 20:49 05/09/24 20:08 Range/Units White Blood Count 7.3 4.4-10.8 10^3/uL Red Blood Count 5.37 H 4.0-5.20 10^6/uL Hemoglobin 15.5 12.2-16.2 g/dL Hematocrit 47.4 H 36.0-46.0 % Mean Corpuscular Volume 88.2 80.0-100.0 fL Mean Corpuscular Hemoglobin 28.8 28.0-32.0 pg Mean Corpuscular Hemoglobin Concent 32.7 32.0-36.0 g/dL Red Cell Distribution Width 13.5 11.8-14.3 % Platelet Count 166 140-450 10^3/uL Mean Platelet Volume 10.3 6.9-10.8 fL Neutrophils (%) (Auto) 70.2 37.0-80.0 % Lymphocytes (%) (Auto) 22.3 10.0-50.0 % Monocytes (%) (Auto) 5.6 0.0-12.0 % Eosinophils (%) (Auto) 1.3 0.0-7.0 % Basophils (%) (Auto) 0.6 0.0-2.0 % Neutrophils # (Auto) 5.1 1.6-8.6 10 ^3/uL Lymphocytes # (Auto) 1.6 0.4-5.4 10 ^3/uL Monocytes # (Auto) 0.4 0-1.3 10 ^3/uL Eosinophils # (Auto) 0.1 0-0.8 10 ^3/uL Basophils # (Auto) 0 0-0.2 10 ^3/uL Nucleated Red Blood Cells 0.1 % Prothrombin Time 11.0 9.3-11.8 sec Prothrombin Time INR 1.04 0.9-1.15 Activated Partial Thromboplast Time 29.4 24.5-34.5 SEC Sodium Level 141 136-145 mmol/L Potassium Level 4.1 3.5-5.1 mmol/L Chloride Level 106 98-107 mmol/L Carbon Dioxide Level 22 20-31 mmol/L Anion Gap 13 5-15 Blood Urea Nitrogen 17 9-23 mg/dL Creatinine 0.91 0.550-1.02 mg/dL Glomerular Filtration Rate Calc 69 >90 mL/min BUN/Creatinine Ratio 18.7 10.0-20.0 Serum Glucose 127 H 74-106 mg/dL Lactic Acid Level 1.6 0.4-2.0 mmol/L Calcium Level 9.6 8.7-10.4 mg/dL EKG shows anteroseptal Q-waves with lateral ST segment changes. Similar to an EKG she had in [address] elevations and Q-waves noted then Assessment Acute coronary syndrome with positive troponins. Old anterior septal wall myocardial infarction. Increased BMI. Recurrent chest pain. Hypertension. Hyperlipidemia. Plan/Recommendation Given her symptoms of chest pain and positive troponins with a previous history of CAD this patient will undergo cardiac catheterization therapeutic intervention. Risks and benefits explained. Patient agrees. Plan discussed with: Patient NYHA Physical activity limitations: Class2(Slight)fatigue,sob Date of Service: May 09, 2024 Billing Provider: YESSICA SANDERS Sr., MD Cardiology Common Codes: 22703-NAXGFKC INP/OBS CARE (High) YESSICA SANDERS Sr., MD May 09, 2024 21:17
[2024-05-09 21:20] VITALS: PULSE 85; RESP 26; O2SAT 92
[2024-05-09] MEDS: IODIXANOL 320MG/ML 100ML BTL IV ONE (21:25)
[2024-05-09] MEDS: ANGIOMAX 250 MG VIAL IV ONE (21:26)
[2024-05-09] MEDS: fentaNYL CITRATE 100 MCG/2 ML VL ONE (21:26)
[2024-05-09] MEDS: LIDOCAINE 2%HCL (LOCAL ANESTH.) INJ 20ML MDV ONE (21:27)
[2024-05-09] MEDS: SODIUM CHL 0.9% 50 ML ONE (21:27)
[2024-05-09] MEDS: MIDAZOLAM HCL 2MG/2ML 2ml VIAL (1mg/ml) ONE (21:27)
[2024-05-09 22:10] VITALS: BP 133/62; PULSE 68; RESP 20; TEMP 97.1; O2SAT 92
--- NOTE | 2024-05-09 22:22 | DVHOP2 ---
Operative Report - 2 Report Details Date: 05/09/24 Preop Diagnosis: Chest pain Postop Diagnosis: Normal coronary arteries. Hypertensive cardiomyopathy Surgeon: Yessica Nogueira MD Anesthesiologist: Conscious sedation Anesthesia: Mac, Local (Fentanyl and Versed were ordered by me. Personally oversaw the administration of medications and monitored the patient throughout the entirety of the procedure.) Consent: The patient was informed of the risks and benefits of the procedure. These include but are not limited to complications of anesthesia, postoperative infection, incomplete relief of symptoms, recurrence of symptoms, damage to blood vessels, nerves and tendons, deep venous thrombosis, pulmonary embolism and possible need for repeat surgery in the future. Complications: No complications Estimated Blood Loss: 5 cc Findings: Normal coronary arteries. Hypertensive cardiomyopathy Indications for Surgery: Abnormal EKG. Elevated troponins. Name of Procedure Performed Left heart catheterization bilateral cine coronary angiography. Left ventriculography. Procedure Details Procedure Details: Prior local anesthesia with 2% lidocaine to the right groin and full informed consent obtained under fluoroscopic and ultrasound guidance we placed a catheter into the femoral artery and with Val catheters performed ventriculography and cannulation of both right and left coronary ostia without complications. Hemodynamics aortic blood pressure was 140/90 end-diastolic pressure was 22. There was no gradient across the aortic valve on pullback. Coronary anatomy: RCA is a large dominant vessel. It is normal in its proximal mid and distal segments. The PDA and posterolateral devries are normal Left main is large and normal Left anterior descending is large and normal with two diagonals free of significant disease Circumflex is large with two marginals free of significant disease Ventriculography in the SEE projection shows an EF of 50-55%. Hypertensive heart is noted. LVH of significant degree. Impression elevated left ventricular end-diastolic pressure at rest. Normal e jection fraction. No significant CAD. Recommendations: Medical therapy is warranted continue with risk factor modification. Condition Good Disposition Still a Patient Date of Service: May 09, 2024 Billing Provider: YESSICA NOGUEIRA Sr., MD Cardiology Common Codes: 35544-XYTUWFR INP/OBS CARE (High) Cardiology Procedure Codes: 50736-LOHFLQ VESSEL W/I VASC FAM, 71549-JTOS ADD CORONARY BRANCH, 43692-BKCY HEART CATH W/INTRA INJ YESSICA NOGUEIRA Sr., MD May 09, 2024 22:22
[2024-05-09 22:25] VITALS: BP 118/54; PULSE 70; RESP 20; O2SAT 92
[2024-05-09 22:40] VITALS: BP 115/49; PULSE 70; RESP 20; O2SAT 92
[2024-05-09 22:55] VITALS: BP 133/65; PULSE 68; RESP 18; TEMP 98.1; O2SAT 97
[2024-05-09 23:16] VITALS: PULSE 68; RESP 18; O2SAT 97
[2024-05-10] MEDS ORDERED: NITROGLYCERIN 0.4 MG SL TAB SL PRN (00:45)
[2024-05-10] MEDS ORDERED: MORPHINE SULFATE INJ 2 MG/ml SYRG IV PRN (00:45)
[2024-05-10] MEDS ORDERED: DEXTROSE (50%) 50ML SYRG IV PRN (00:45)
[2024-05-10] MEDS: ASPirin 81 mg TAB PO SCH (01:05)
[2024-05-10] MEDS: LOSARTAN POTASSIUM 50 MG TAB PO SCH (01:05)
[2024-05-10 02:19] LABS: Basophils # (auto) 0.1 10 ^3/uL (0-0.2); Basophils % (auto) 0.8 % (0.0-2.0); Eosinophils # (auto) 0.1 10 ^3/uL (0-0.8); Eosinophils % (auto) 1.7 % (0.0-7.0); Hematocrit 41.5 % (36.0-46.0); Lymphocytes # (auto) 2.3 10 ^3/uL (0.4-5.4); Lymphocytes % (auto) 35.1 % (10.0-50.0); Mean Corpuscular Hemoglobin 29.3 pg (28.0-32.0); Mean Corpuscular Hgb Conc. 33.8 g/dL (32.0-36.0); Mean Corpuscular Volume 86.8 fL (80.0-100.0); Monocytes # (auto) 0.5 10 ^3/uL (0-1.3); Monocytes % (auto) 7.7 % (0.0-12.0); Neutrophils # (auto) 3.5 10 ^3/uL (1.6-8.6); Neutrophils % (auto) 54.7 % (37.0-80.0); Nucleated Red Blood Cells % 0.1 %; Platelet Count (auto) 167 10^3/uL (140-450); Red Blood Cells 4.78 10^6/uL (4.0-5.20); Red Cell Distribution Width 13.4 % (11.8-14.3); White Blood Cell 6.4 10^3/uL (4.4-10.8)
[2024-05-10 02:41] LABS: Alanine Aminotransferase 22 U/L (7-40); Anion Gap 9 (5-15); Aspartate Aminotransferase 20 U/L (13-40); BUN/Creatinine Ratio 20.5 (10.0-20.0); Blood Urea Nitrogen 17 mg/dL (9-23); Calcium 9.3 mg/dL (8.7-10.4); Carbon Dioxide 24 mmol/L (20-31); LDL Cholesterol 93 mg/dL (< 100); Potassium 4.2 mmol/L (3.5-5.1); Sodium 142 mmol/L (136-145); Total Protein 6.2 g/dL (5.7-8.2); Triglycerides 145 mg/dL (< 150)
[2024-05-10 02:42] LABS: Bilirubin, Total 0.4 mg/dL (0.2-1.0); Cholesterol 167 mg/dL (< 200); HDL Cholesterol 57 mg/dL (40-59)
[2024-05-10 02:51] LABS: Alkaline Phosphatase 119 U/L (46-116); Chloride 109 mmol/L (98-107); Glucose 108 mg/dL (74-106)
--- NOTE | 2024-05-10 03:56 | ECG ---
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
--- NOTE | 2024-05-10 03:56 | ECG ---
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
--- NOTE | 2024-05-10 03:56 | ECG ---
[facility] Test Date: 2024-05-09 Test Time: 20:15:55 Pat Name: ROEL CRAMER Department: ED Room: 0273T Gender: F Auth Specialist: MARU : 1955 Requested By: ODELL ZHU Order Number: [id number] Reading MD: Measurements Intervals [place] Rate: 83 P: 62 [place]: 174 QRS: -10 QRSD: 115 T: 131 QT: 394 QTc: 463 Interpretive Statements Sinus rhythm Left atrial enlargement LVH with IVCD and secondary repol abnrm Extensive anterior infarct, acute (LAD) Please click the below link to view image of tracing.
--- NOTE | 2024-05-10 04:17 | DVHHPRES ---
History of Present Illness Resident Creating Document: MATTHEW BARBOZA RESIDENT Reason for Visit: chest pain History of Present Illness 69-year-old female with a history of hypertension, hyperlipidemia, and a pacemaker, brought to the ED by EMS for evaluation of chest pain. The pain began around 17:00 while she was at rest with her grandson. She describes it as a sharp, tight sensation on the left side of her chest, without associated shortness of breath, blurry vision, headache, dizziness, nausea, vomiting, or diarrhea. EMS reported that she was initially in atrial fibrillation (A-fib) with rapid ventricular response (RVR) but converted to sinus rhythm during transport. Upon arrival, an EKG was performed, and she was given nitroglycerin, with repeat EKG in 15 minutes. Initial troponin was 1,100, followed by 1,200, and later increased to 2,100. Due to abnormal EKG findings with ST changes, the patient underwent a left heart catheterization, which showed normal coronary arteries and hypertensive cardiomyopathy, with no significant coronary artery disease (CAD). Currently, the patient is pain-free on the floor. Past Medical History: Hypertension Hyperlipidemia Pacemaker (She doesnt remember why) History of COVID with prior respiratory failure Past Surgical History: Pacemaker placement Social History: Smoking: Nonsmoker Alcohol: Rare use Drugs: Denies Living situation: Lives at home Allergies: Penicillins Review of Systems Review of Systems Constitutional: Denies chills, diaphoresis, fever, malaise, sweats, weakness HEENT: Denies double vision, photophobia, hearing loss Cardiovascular: Reports chest pain, denies palpitations or syncope Pulmonary: Denies SOB, wheezing, stridor GI: Denies nausea, vomiting, diarrhea Neurologic: Denies dizziness, headache, speech problems Psychiatric: Denies depression, hallucinations Allergies: Coded Allergies: Penicillins (Verified Allergy, Unknown, 03/02/20) Medications Current Medications Medications Dose Ordered Sig/Yesica Route Start Time Stop Time Status Last Admin Dose Admin Nitroglycerin 0.4 mg Q5MINP PRN SL 05/10/24 00:45 Morphine Sulfate 2 mg Q30M PRN IV 05/10/24 00:45 Aspirin 81 mg DAILY PO 05/10/24 00:45 05/10/24 01:05 81 MG Losartan Potassium 50 mg DAILY PO 05/10/24 00:45 05/10/24 01:05 50 MG Diagnostic Test (Pha) 1 strip Q6HR 05/10/24 06:00 Insulin Human Regular Q6HR SC 05/10/24 06:00 Dextrose 50 ml UD PRN IV 05/10/24 00:45 Enoxaparin Sodium 40 mg DAILY SC 05/10/24 10:00 Furosemide 20 mg DAILY IV 05/10/24 04:00 Exam Vital Signs Vital Signs Date Time Temp Pulse Resp B/P (MAP) Pulse Ox O2 Delivery O2 Flow Rate FiO2 05/10/24 01:05 136/63 05/09/24 23:16 68 18 97 Room Air* 0 21 05/09/24 22:10 97.1 97.1 Exam General: No acute distress Cardiovascular: Regular rate and rhythm, no murmurs, rubs, or gallops Pulmonary: Clear to auscultation bilaterally, no rales, rhonchi, or wheezing Neurologic: Alert and oriented, no focal deficits Extremities: right groin puncture without hematoma or bleeding Labs/Xrays Labs Test 05/10/24 01:55 05/09/24 20:08 Range/Units White Blood Count 6.4 4.4-10.8 10^3/uL Red Blood Count 4.78 4.0-5.20 10^6/uL Hemoglobin 14.0 12.2-16.2 g/dL Hematocrit 41.5 # 36.0-46.0 % Mean Corpuscular Volume 86.8 80.0-100.0 fL Mean Corpuscular Hemoglobin 29.3 28.0-32.0 pg Mean Corpuscular Hemoglobin Concent 33.8 32.0-36.0 g/dL Red Cell Distribution Width 13.4 11.8-14.3 % Platelet Count 167 140-450 10^3/uL Mean Platelet Volume 10.6 6.9-10.8 fL Neutrophils (%) (Auto) 54.7 37.0-80.0 % Lymphocytes (%) (Auto) 35.1 10.0-50.0 % Monocytes (%) (Auto) 7.7 0.0-12.0 % Eosinophils (%) (Auto) 1.7 0.0-7.0 % Basophils (%) (Auto) 0.8 0.0-2.0 % Neutrophils # (Auto) 3.5 1.6-8.6 10 ^3/uL Lymphocytes # (Auto) 2.3 0.4-5.4 10 ^3/uL Monocytes # (Auto) 0.5 0-1.3 10 ^3/uL Eosinophils # (Auto) 0.1 0-0.8 10 ^3/uL Basophils # (Auto) 0.1 0-0.2 10 ^3/uL Nucleated Red Blood Cells 0.1 % Sodium Level 142 136-145 mmol/L Potassium Level 4.2 3.5-5.1 mmol/L Chloride Level 109 H 98-107 mmol/L Carbon Dioxide Level 24 20-31 mmol/L Anion Gap 9 5-15 Blood Urea Nitrogen 17 9-23 mg/dL Creatinine 0.83 0.550-1.02 mg/dL Glomerular Filtration Rate Calc 77 >90 mL/min BUN/Creatinine Ratio 20.5 H 10.0-20.0 Serum Glucose 108 H 74-106 mg/dL Hemoglobin A1c 6.3 H <5.7 % A1C Calcium Level 9.3 8.7-10.4 mg/dL Total Bilirubin 0.4 0.2-1.0 mg/dL Aspartate Amino Transferase (AST) 20 13-40 U/L Alanine Aminotransferase (ALT) 22 7-40 U/L Alkaline Phosphatase 119 H 46-116 U/L Troponin I High Sensitivity 2174 *H </=34 ng/L B-Type Natriuretic Peptide 550.74 0-100 pg/mL Total Protein 6.2 5.7-8.2 g/dL Albumin 4.0 3.2-4.8 g/dL Triglycerides Level 145 < 150 mg/dL Cholesterol Level 167 < 200 mg/dL LDL Cholesterol 93 < 100 mg/dL HDL Cholesterol 57 40-59 mg/dL Thyroid Stimulating Hormone (TSH) 1.92 0.55-4.78 uIU/mL Prothrombin Time 11.0 9.3-11.8 sec Prothrombin Time INR 1.04 0.9-1.15 Activated Partial Thromboplast Time 29.4 24.5-34.5 SEC Lactic Acid Level 1.6 0.4-2.0 mmol/L Assessment/Plan Assessment/Plan Imaging & Diagnostic Studies: 1. EKG: EKG shows anteroseptal Q-waves with lateral ST segment changes. Similar to an EKG she had in [address] elevations and Q- waves noted then 2. Troponins: Rising trend (1,100 - 1,200 - 2,100) 3. Cardiac catheterization: Normal coronary arteries Hypertensive cardiomyopathy Left ventricular ejection fraction 50-55%, significant LVH No significant CAD 4. Chest X-ray: Pacemaker present Moderate interstitial pulmonary edema in the setting of cardiomegaly 5. High levels of BNP Assessment & Plan: 69-year-old female with hypertension, hyperlipidemia, and pacemaker, presenting with chest pain, found to have abnormal EKG and rising troponins but normal coronary arteries on catheterization. #Chest pain #s/p left cath #ST elevation: present now, 2020? #Afib with RVR resolved #Hypertensive heart disease with diastolic dysfunction #Acute exacerbation of HFpEF #s/p pacemaker No obstructive CAD per cath Continue cardiac monitoring ECHO pending Start metoprolol 50 mg Start enoxaparin BID Start jardiance 10 mg Start losartan 50 mg Pacemaker interrogation Continue cardiology f/u Start furosemide 20 mg BID ASCVD score 11.9%: atorvastatin 80 mg Case discussed with Dr Jensen Plan discussed with: Patient, Other (rn) My Orders Orders - MATTHEW BARBOZA RESIDENT Procedure Category Date Status Time Admit ADMIT 05/10/24 Transmitted 00:33 Nitroglycerin PHA 05/10/24 In Process Sublingual (Ntrostat 00:45 Morphine Sulfate PHA 05/10/24 In Process Injection 00:45 Oxygen By Nasal RT 05/10/24 Transmitted Cannula 00:33 Stat Ekg For Chest CHAPIN 05/10/24 In Process Pain 00:33 Notify Md Of Changes CHAPIN 05/10/24 In Process From Base 00:33 Manufacturing Systems Engineer For CHAPIN 05/10/24 In Process 24 Hours 00:33 Emergency Dysrhythmia CHAPIN 05/10/24 In Process Protocol 00:33 Rhythm Strips Once CHAPIN 05/10/24 In Process Every Shift 00:33 Cardiac DIET 05/10/24 Transmitted Diet-2gna,Lofat,Lochol Breakfast Aspirin Tablet PHA 05/10/24 In Process 00:45 Losartan Tablet PHA 05/10/24 In Process (Cozaar Tablet) 00:45 Glucose Blood PHA 05/10/24 In Process (Accu-Chek Comfort 06:00 Insulin R (Human) PHA 05/10/24 In Process (Insulin R) 06:00 Dextrose 50% Syringe PHA 05/10/24 In Process 00:45 Echo 2d Mode Cardiac US 05/10/24 Logged DOP 01:23 Enoxaparin Sodium PHA 05/10/24 In Process (Lovenox) 10:00 Furosemide Injection PHA 05/10/24 In Process (Lasix Injection) 04:00 Date of Service: May 10, 2024 Billing Provider: AGAPITO JENSEN MD Common Visit Codes: 18742-XPSTFRP INP/OBS CARE (HIGH) Secondary Visit Codes: 56562-VENLKWXU CARE PLAN 30 MINUTES MATTHEW BARBOZA RESIDENT May 10, 2024 04:17 AGAPITO JENSEN MD May 10, 2024 18:36
[2024-05-10 05:00] VITALS: BP_SYST 102; BP_SYST 136; BP_DIAS 63; BP_DIAS 71; PULSE 62; PULSE 82; RESP 17; RESP 18; TEMP 97.7; TEMP 97.8; O2SAT 93; O2SAT 96
[2024-05-10] MEDS: FUROSEMIDE 20 MG/2 ML VIAL IV SCH (05:44)
[2024-05-10] MEDS ORDERED: InsuLIN REG 1unit/0.01ml Soln (100units/ml) SC SCH (06:00)
[2024-05-10] MEDS ORDERED: ACCU-CHEK COMFORT CURVE STRIP VI SCH (06:00)
[2024-05-10 08:00] VITALS: PULSE 63; PULSE 66; RESP 20; O2SAT 94
[2024-05-10 09:00] VITALS: BP 112/49; PULSE 63; RESP 20; TEMP 97.9; O2SAT 94
[2024-05-10] MEDS ORDERED: ENOXAPARIN SOD 40 MG/0.4 ML SYRINGE SC SCH (10:00)
[2024-05-10] MEDS: ENOXAPARIN SOD 40 MG/0.4 ML SYRINGE SC SCH (10:10)
[2024-05-10] MEDS: EMPAGLIFLOZIN 10 MG TAB PO SCH (10:10)
[2024-05-10] MEDS: METOPROLOL SUCCINATE XL 50 MG TAB PO SCH (10:11)
[2024-05-10] MEDS ORDERED: ATOR40TA52 PO (11:16)
[2024-05-10] MEDS ORDERED: ASPI-498 OR (11:16)
[2024-05-10 11:25] VITALS: BP 119/50; PULSE 64; RESP 16
--- NOTE | 2024-05-10 11:44 | DVHDSRES ---
Discharge Summary Date of Admission Resident Creating Document: MATTHEW BARBOZA RESIDENT May 10, 2024 at 00:33 Date of Discharge: May 10, 2024 Admitting Diagnosis Acute chest pain likely due to Acute coronary syndrome likely due to STEMI Labs/Diagnostic Data: Laboratory Results Test 05/10/24 01:55 05/09/24 20:08 White Blood Count 6.4 10^3/uL (4.4-10.8) Red Blood Count 4.78 10^6/uL (4.0-5.20) Hemoglobin 14.0 g/dL (12.2-16.2) Hematocrit 41.5 % (36.0-46.0) Mean Corpuscular Volume 86.8 fL (80.0-100.0) Mean Corpuscular Hemoglobin 29.3 pg (28.0-32.0) Mean Corpuscular Hemoglobin Concent 33.8 g/dL (32.0-36.0) Red Cell Distribution Width 13.4 % (11.8-14.3) Platelet Count 167 10^3/uL (140-450) Mean Platelet Volume 10.6 fL (6.9-10.8) Neutrophils (%) (Auto) 54.7 % (37.0-80.0) Lymphocytes (%) (Auto) 35.1 % (10.0-50.0) Monocytes (%) (Auto) 7.7 % (0.0-12.0) Eosinophils (%) (Auto) 1.7 % (0.0-7.0) Basophils (%) (Auto) 0.8 % (0.0-2.0) Neutrophils # (Auto) 3.5 10 ^3/uL (1.6-8.6) Lymphocytes # (Auto) 2.3 10 ^3/uL (0.4-5.4) Monocytes # (Auto) 0.5 10 ^3/uL (0-1.3) Eosinophils # (Auto) 0.1 10 ^3/uL (0-0.8) Basophils # (Auto) 0.1 10 ^3/uL (0-0.2) Nucleated Red Blood Cells 0.1 % Sodium Level 142 mmol/L (136-145) Potassium Level 4.2 mmol/L (3.5-5.1) Chloride Level 109 mmol/L (98-107) Carbon Dioxide Level 24 mmol/L (20-31) Anion Gap 9 (5-15) Blood Urea Nitrogen 17 mg/dL (9-23) Creatinine 0.83 mg/dL (0.550-1.02) Glomerular Filtration Rate Calc 77 mL/min (>90) BUN/Creatinine Ratio 20.5 (10.0-20.0) Serum Glucose 108 mg/dL (74-106) Hemoglobin A1c 6.3 % A1C (<5.7) Calcium Level 9.3 mg/dL (8.7-10.4) Total Bilirubin 0.4 mg/dL (0.2-1.0) Aspartate Amino Transferase (AST) 20 U/L (13-40) Alanine Aminotransferase (ALT) 22 U/L (7-40) Alkaline Phosphatase 119 U/L (46-116) Troponin I High Sensitivity 2174 ng/L (</=34) B-Type Natriuretic Peptide 550.74 pg/mL (0-100) Total Protein 6.2 g/dL (5.7-8.2) Albumin 4.0 g/dL (3.2-4.8) Triglycerides Level 145 mg/dL (< 150) Cholesterol Level 167 mg/dL (< 200) LDL Cholesterol 93 mg/dL (< 100) HDL Cholesterol 57 mg/dL (40-59) Thyroid Stimulating Hormone (TSH) 1.92 uIU/mL (0.55-4.78) Prothrombin Time 11.0 sec (9.3-11.8) Prothrombin Time INR 1.04 (0.9-1.15) Activated Partial Thromboplast Time 29.4 SEC (24.5-34.5) Lactic Acid Level 1.6 mmol/L (0.4-2.0) Other Laboratory Tests 05/10/24 01:55 Brief Hx & Hospital Course: [id number]-old female with a history of hypertension, hyperlipidemia, and a pacemaker, brought to the ED by EMS for evaluation of chest pain. The pain began around 17:00 while she was at rest with her grandson. She describes it as a sharp, tight sensation on the left side of her chest, without associated shortness of breath, blurry vision, headache, dizziness, nausea, vomiting, or diarrhea. EMS reported that she was initially in atrial fibrillation (A-fib) with rapid ventricular response (RVR) but converted to sinus rhythm during transport. Upon arrival, an EKG was performed, and she was given nitroglycerin, with repeat EKG in 15 minutes. Initial troponin was 1,100, followed by 1,200, and later increased to 2,100. Due to abnormal EKG findings with ST changes, the patient underwent a left heart catheterization, which showed normal coronary arteries and hypertensive cardiomyopathy, with no significant coronary artery disease (CAD). Currently, the patient is pain-free on the floor. Hospital course-patient came with a complaint of central chest pain, severe, 12/15. Patient was admitted to the hospital due to acute coronary syndrome likely due to STEMI. Upon arrival, an EKG was performed, and she was given nitroglycerin, with repeat EKG in 15 minutes. Initial troponin was 1,100, followed by 1,200, and later increased to 2,100. Due to abnormal EKG findings with ST changes, the patient underwent a left heart catheterization, which showed normal coronary arteries and hypertensive cardiomyopathy, with no significant coronary artery disease (CAD). Patient had left heart catheterization immediately which revealed no significant coronary artery disease. Patient denied any chest pain or shortness for breath this morning. Patient is adamant about going home today. Patient is being discharged home with aspirin 81 mg daily, atorvastatin 40 mg p.o. q.h.s.. Patient was advised to resume other home medications. Patient was advised to follow up with the primary care physician in 1 week and also to follow up with the server systems administrator in 1-2 weeks. Patient's meds were sent to the pharmacy electronically. Patient was hemodynamically stable on discharge. Diagnosis Acute chest pain likely due to an STEMI Suspected atrial fibrillation with rapid ventricular rate-resolved Hypertensive heart disease with hypertensive cardiomyopathy #Acute exacerbation of HFpEF #s/p pacemaker Hyperlipidemia Obesity Discharge plan Continue aspirin 81 mg p.o. daily Continue atorvastatin 40 mg p.o. q.h.s. Please resume other home medications Please follow up with the primary care physician in 1 week Please follow up with the server systems administrator in 1-2 weeks Please be compliant with the medications Patient is counseled about weight reduction Operations or Procedures Patient: ROEL CRAMER Acct: [id number] : 1955 Loc: ER Age/Sex: 69/F Room: / Bed: Attending Phy: Operative Report - 2 Report Details Date: 05/09/24 Preop Diagnosis: Chest pain Postop Diagnosis: Normal coronary arteries. Hypertensive cardiomyopathy Surgeon: Yessica Sanders MD Anesthesiologist: Conscious sedation Anesthesia: Mac, Local (Fentanyl and Versed were ordered by me. Personally oversaw the administration of medications and monitored the patient throughout the entirety of the procedure.) Consent: The patient was informed of the risks and benefits of the procedure. These include but are not limited to complications of anesthesia, postoperative infection, incomplete relief of symptoms, recurrence of symptoms, damage to blood vessels, nerves and tendons, deep venous thrombosis, pulmonary embolism and possible need for repeat surgery in the future. Complications: No complications Estimated Blood Loss: 5 cc Findings: Normal coronary arteries. Hypertensive cardiomyopathy Indications for Surgery: Abnormal EKG. Elevated troponins. Name of Procedure Performed Left heart catheterization bilateral cine coronary angiography. Left ventriculography. Procedure Details Procedure Details: Prior local anesthesia with 2% lidocaine to the right groin and full informed consent obtained under fluoroscopic and ultrasound guidance we placed a catheter into the femoral artery and with Val catheters performed ventriculography and cannulation of both right and left coronary ostia without complications. Hemodynamics aortic blood pressure was 140/90 end-diastolic pressure was 22. There was no gradient across the aortic valve on pullback. Coronary anatomy: RCA is a large dominant vessel. It is normal in its proximal mid and distal segments. The PDA and posterolateral devries are normal Left main is large and normal Left anterior descending is large and normal with two diagonals free of significant disease Circumflex is large with two marginals free of significant disease Ventriculography in the SEE projection shows an EF of 50-55%. Hypertensive heart is noted. LVH of significant degree. Impression elevated left ventricular end-diastolic pressure at rest. Normal ejection fraction. No significant CAD. Recommendations: Medical therapy is warranted continue with risk factor modification. Condition Good Disposition 2 Still a Patient Date of Service: May 09, 2024 Billing Provider: YESSICA SANDERS Sr., MD Cardiology Common Codes: 99895-DHVVCOR INP/OBS CARE (High) Cardiology Procedure Codes: 65015-OTEIMQ VESSEL W/I VASC FAM, 75850-RQUO ADD CORONARY BRANCH, 53247-RUIC HEART CATH W/INTRA INJ YESSICA SANDERS Sr., MD May 09, 2024 22:22 DICTATED BY:YESSICA SANDERS Sr., MD DICTATED DATE/TIME:05/09/24 2222 ELECTRONICALLY SIGNED BY:YESSICA SANDERS Sr., MD 05/09/242221 ELECTRONICALLY CO-SIGNED BY: Condition at Discharge: Stable Final Diagnosis/Problems List Acute chest pain likely due to NSTEMI type 1 Suspected atrial fibrillation with rapid ventricular rate-resolved Hypertensive heart disease with hypertensive cardiomyopathy #Acute exacerbation of HFpEF #s/p pacemaker Hyperlipidemia Obesity Normal coronary arteries. Hypertensive cardiomyopathy Discharge Disposition: Home Discharge Instruct/Medications Diet: Cardiac 2g Na,low cholest Activity: No Restrictions, As Tolerated Follow Up/Referral: Please follow up with the primary care physician in 1 week Please follow up with the server systems administrator in 1-2 weeks Please be compliant with the medications Patient is counseled about weight reduction Medications: Continue aspirin 81 mg p.o. daily Continue atorvastatin 40 mg p.o. q.h.s. Please resume other home medications Discharge Statement: "Patient was advised to return to the ER or call 911 if any headaches, dizziness, shortness of breath, chest pain, abdominal pain, bleeding, fevers, or worsening of medical condition. Patient was counseled about treatment plan, medications, possible side effects, patientverbalized understanding. All questions were answered to the best of my ability. This discharge took greater then 30 minutes in planning, reviewing documentation, counseling the patient, and discussing with other team members." ASSESSMENT ASSESSMENT Assessment Acute chest pain likely due to NSTEMI type 1 Normal coronary arteries. Hypertensive cardiomyopathy LEANDRO SANDERS RESIDENT May 10, 2024 11:44
[2024-05-10 12:21] VITALS: BP 119/50; PULSE 64; RESP 16; TEMP 97.9
[2024-05-10 12:54] VITALS: BP 106/50; PULSE 62; RESP 20; TEMP 98.2; O2SAT 93
--- NOTE | 2024-05-10 16:42 | DVHSR ---
APPROVED REPORT EXAM: LIMITED Two-dimensional and M-mode echocardiogram with Doppler and color Doppler. Blood Pressure: 136/63 mmHg INDICATION Chest Pain R/O CHF RISK FACTORS Height: 5' 5", Weight: 181 DIMENSIONS LVDd3.7 (3.8-5.7cm)LA (2D)5.5 (1.9-4.0cm)Aortic Root2.2 (2.0-3.7cm) LVDs2.1 (2.5-4.0cm)LA (MM) (1.9-4.0cm)Aortic Cusp Exc1.3 (1.5-2.0cm) EF (%) 76.0 (55-70%)Rt. Atrium3.9 (1.9-4.0cm)Asc. Aorta cm IVSd2.0 (0.7-1.1cm)RV (D) (1.8-2.4cm) PWd2.0 (0.7-1.1cm) Mitral Valve MitralMitral Stenosis E wave1.50m/sMV Mean GR.mmHg A wave1.50m/sMV Peak GR.mmHg E/A ratio1.02D MVAcm2 Aortic Valve Aortic ValveAortic Stenosis V12.64m/Barbara Mean GR.18mmHg V23.17m/Barbara Peak GR.40mmHg LVOT Diameter1.9 (1.8-2.4cm)Doppler AVA2.36cm2 Pulmonic Valve V21.10m/s Other Information Quality : Technically LimitedRhythm : Technically limited study due to body habitus. Conclusion Technically good study. Sinus rhythm. Difficult acoustic windows. Severe concentric left ventricular hypertrophy noted consistent with hypertrophic cardiomyopathy. Le ft atrial enlargement. Moderate to severe mitral annular calcification. The aortic is structurally normal. The tricuspid i s structurally normal. Left ventricular systolic function is hypercontractile. EF is approximately 80%. There is increased contractility given the associated hypertensive cardiomyopathy and or hypertrophic cardiomyopathy. Pacing lead noted in the right ventricle. Dopplers unremarkable. No pericardial effusion masses or vegetations discernible.
[2024-05-10] MEDS ORDERED: ATORVASTATIN 20 MG TAB PO SCH (22:00)
== END 2024-05-10 13:05 | disposition home or self-care (01) | DRG 190 ==
LOC: ER 19:46 → EDBD 19:46 → OVERFLOW 05-10 00:33 → TELE-WESTW 05-10 03:19
PROVIDERS: ADMIT Student in an Organized Health Care Education/Training Program; ATTEND Emergency Medicine
PROC: B211YZZ Fluoroscopy of Multiple Coronary Arteries using Other Contrast (ICD-10-PCS; principal; 2024-05-09)
PROC: B215YZZ Fluoroscopy of Left Heart using Other Contrast (ICD-10-PCS; 2024-05-09)
PROC: 4A023N7 Measurement of Cardiac Sampling and Pressure, Left Heart, Percutaneous Approach (ICD-10-PCS; 2024-05-09)
DX: I21.29 ST elevation (STEMI) myocardial infarction involving other sites (principal); I50.33 Acute on chronic diastolic (congestive) heart failure; I25.10 Atherosclerotic heart disease of native coronary artery without angina pectoris; I43 Cardiomyopathy in diseases classified elsewhere; I11.0 Hypertensive heart disease with heart failure; E66.9 Obesity, unspecified; I48.91 Unspecified atrial fibrillation; E78.5 Hyperlipidemia, unspecified; Z88.0 Allergy status to penicillin; Z79.899 Other long term (current) drug therapy; Z82.49 Family history of ischemic heart disease and other diseases of the circulatory system; Z95.0 Presence of cardiac pacemaker; I25.2 Old myocardial infarction; Z86.16 Personal history of COVID-19; Z79.82 Long term (current) use of aspirin; Z79.84 Long term (current) use of oral hypoglycemic drugs; Z79.01 Long term (current) use of anticoagulants; Z68.30 Body mass index [BMI] 30.0-30.9, adult
CPT/HCPCS: 36415; 71045; 80048; 80053; 80061; 83036; 83605; 83880; 84443; 84484; 85025; 85610; 85730; 86850; 86900; 86901; 93005; 93306; 99152; 99291; G0378; J2250; Q9967

== ENCOUNTER → 2024-06-14 | Outpatient (CLI) | payer MEDICAID ==
[~2024-06-14] MED LIST: ASPI-498 OR; ATOR40TA52 PO
[2024-06-14 10:13] LABS: Chloride 106 mmol/L (98-107); Potassium 4.1 mmol/L (3.5-5.1); Sodium 140 mmol/L (136-145)
[2024-06-14 10:14] LABS: Anion Gap 7 (5-15); Carbon Dioxide 27 mmol/L (20-31)
[2024-06-14 10:19] LABS: BUN/Creatinine Ratio 19.5 (10.0-20.0); Blood Urea Nitrogen 15 mg/dL (9-23); Glucose 93 mg/dL (74-106)
[2024-06-15 16:50] LABS: Triglycerides 78 mg/dL (< 150)
[2024-06-15 16:51] LABS: Cholesterol 152 mg/dL (< 200); LDL Cholesterol 60 mg/dL (< 100)
[2024-06-15 16:58] LABS: HDL Cholesterol 76 mg/dL (40-59)
== END | disposition home or self-care (01) ==
LOC: LAB 09:44
PROVIDERS: ATTEND Internal Medicine
DX: E11.9 Type 2 diabetes mellitus without complications (principal)
CPT/HCPCS: 36415; 80048; 80061; 82306

== ENCOUNTER → 2024-06-20 | Outpatient (CLI) | payer MEDICAID | END | disposition home or self-care (01) | LOC: LAB 13:24 | PROVIDERS: ATTEND Internal Medicine | DX: E11.9 Type 2 diabetes mellitus without complications (principal) | CPT/HCPCS: 82274 ==